=== PATIENT | female | born 1980 | race Caucasian/White ===

== ENCOUNTER 2020-08-16 16:18 | Emergency (ER) | payer OTHER ==
--- NOTE | 2020-08-16 21:46 | EDM.PDOC ---
ED HPI GENERAL MEDICAL PROBLEM - General Chief Complaint: Cardiovascular Problem Stated Complaint: POSSIBLE BLOOD CLOT Time Seen by Provider: 08/16/20 18:13 Source of Information: Reports: Patient History Limitations: Reports: No Limitations - History of Present Illness INITIAL COMMENTS - FREE TEXT/NARRATIVE: Catherine is a 40-year-old female presenting to the ED for evaluation of right lower extremity pain. Patient is concerned about blood clots because both she and her father had Covid in July and he developed a large blood clot in the lower extremity from the iliac crest down to his ankle. 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 She is unaware of why she has an increased risk of blood clots but was concerned prompting her to come in for evaluation. She denies any significant trauma although she does have some mild bruising on her lower extremities from bumping into things. She is currently on vacation. She denies any numbness or tingling. She does have a history of sciatica on the left but not the right. 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 Hematologic History: Reports: Anticoagulation Therapy - Past Surgical History Female Surgical History: Reports: D&C, Tubal Ligation Social & Family History - Tobacco Use Tobacco Use Status *Q: Never Tobacco User - Caffeine Use Caffeine Use: Reports: Coffee - Recreational Drug Use Recreational Drug Use: No ED ROS GENERAL - Review of Systems Review Of Systems: See Below Constitutional: Reports: No Symptoms HEENT: Reports: No Symptoms Respiratory: Reports: No Symptoms Cardiovascular: Reports: No Symptoms Endocrine: Reports: No Symptoms GI/Abdominal: Reports: No Symptoms : Reports: No Symptoms Musculoskeletal: Reports: Leg Pain (Right calf pain in the posterior calf) Skin: Reports: Bruising (Minor bruising on both lower extremities) Neurological: Reports: No Symptoms Psychiatric: Reports: No Symptoms Hematologic/Lymphatic: Reports: Other (History of previous blood clots) Immunologic: Reports: No Symptoms ED EXAM, GENERAL - Physical Exam Exam: See Below Exam Limited By: No Limitations General Appearance: Alert, No Apparent Distress Head: Atraumatic, Normocephalic Neck: Normal Inspection Respiratory/Chest: No Respiratory Distress, Lungs Clear, Normal Breath Sounds Cardiovascular: Normal Peripheral Pulses, Regular Rate, Rhythm Peripheral Pulses: 2+: Brachial (L), Brachial (R), Posterior Tibial (L), Pos terior Tibial (R) Extremities: No Pedal Edema, Leg Pain (Tenderness to palpation in the midline posterior right calf. There is no significant edema.). No: Kathrin's Sign, Limi binh Range of Motion, Increased Warmth, Redness Neurological: Alert, Oriented, Normal Cognition, No Motor/Sensory Deficits Psychiatric: Normal Affect, Normal Mood Skin Exam: Warm, Dry, Intact, Normal Color Lymphatic: No Adenopathy Course - Vital Signs Last Recorded V/S: Last Vital Signs Temp 36.6 C 08/16/20 17:41 Pulse 108 H 08/16/20 19:44 Resp 16 08/16/20 17:41 BP 125/82 08/16/20 19:44 Pulse Ox 97 08/16/20 19:44 - Orders/Labs/Meds Orders: Active Orders 24 hr Category Date Time Status VL Duplex Lwr Ext Veins Ltd Rt [US] Stat Exams 08/16/20 18:14 Taken Labs: Laboratory Tests 08/16/20 08/16/20 Range/Units 18:32 18:32 WBC 5.8 (4.5-11.0) K/uL RBC 3.91 (3.30-5.50) M/uL Hgb 11.1 L (12.0-15.0) g/dL Hct 34.3 L (36.0-48.0) % MCV 88 (80-98) fL MCH 28 (27-31) pg MCHC 32 (32-36) % Plt Count 251 (150-400) K/uL Neut % (Auto) 52.6 (36-66) % Lymph % (Auto) 35.6 (24-44) % Garza % (Auto) 10.3 H (2-6) % Eos % (Auto) 1.0 L (2-4) % Baso % (Auto) 0.5 (0-1) % D-Dimer, Quantitative 258.27 (0.0-500.0) ng/mL - Radiology Interpretation Free Text/Narrative:: Ultrasound of the right lower extremity venous duplex was performed demonstrating normal venous vasculature without evidence for acute clot. - Re-Assessments/Exams Free Text/Narrative Re-Assessment/Exam: 08/16/20 21:49 ultrasound was performed showing no evidence for acute deep venous thrombosis or superficial thrombophlebitis. Labs were obtained showing a normal CBC and D-dimer. Patient is currently anticoagulated with Eliquis for previous DVTs. She was concerned with the risk of recently having Covid that she may have had recurrence. She will try Tylenol for pain control and will follow up with her primary care provider in [place], [place]. Indications to return to the ED were discussed and she was discharged in satisfactory condition. Departure - Departure Time of Disposition: 21:44 Disposition: Home, Self-Care 01 Clinical Impression: Pain of right lower extremity Referrals: PCP,None [Primary Care Provider] - Forms: ED Department Discharge Care Plan Goals: Your work-up today did not demonstrate any evidence for an acute blood clot. Your ultrasound was unremarkable for superficial thrombophlebitis which would be a blood clot in the less deep vessels. This is likely either due to irritation of the nerve referred to as sciatica or a strain of the muscle. Both should respond to ample use of Tylenol for pain control. You may do activity as tolerated. Please return to the ED should you have any significant worsening in symptoms. Sepsis Event Note (ED) - Evaluation Sepsis Screening Result: No Definite Risk - Focused Exam Vital Signs: Vital Signs Temp Pulse Resp BP Pulse Ox 08/16/20 19:44 108 H 125/82 97 08/16/20 17:41 36.6 C 109 H 16 123/68 96 08/16/20 17:19 36.6 C 109 H 16 123/68 96 - Problem List & Annotations (1) Pain of right lower extremity SNOMED Code(s): 035889536 Code(s): M79.604 - PAIN IN RIGHT LEG Status: Acute Priority: Medium Current Visit: Yes - Problem List Review Problem List Initiated/Reviewed/Updated: Yes - My Orders Last 24 Hours: My Active Orders 08/16/20 18:14 VL Duplex Lwr Ext Veins Ltd Rt [US] Stat - Assessment/Plan Last 24 Hours: My Active Orders 08/16/20 18:14 VL Duplex Lwr Ext Veins Ltd Rt [US] Stat
--- NOTE | 2020-08-17 09:05 | US ---
VL Duplex Lwr Ext Veins Ltd Rt INDICATION: right lower extremity pain/swelling post Covid FINDINGS: Ultrasound examination of the lower extremity using Doppler and compressive technique demonstrates that the common femoral, femoral, and popliteal veins are patent, and negative for thrombus. The calf veins were segmentally visualized and are negative where seen. IMPRESSION: Negative for deep venous thrombosis.
== END 2020-08-16 22:06 | disposition home or self-care (01) ==
LOC: JP.ED 16:18
DX: M79.604 Pain in right leg (principal); Z86.718 Personal history of other venous thrombosis and embolism; Z79.01 Long term (current) use of anticoagulants; Z91.040 Latex allergy status; Z91.013 Allergy to seafood; Z88.2 Allergy status to sulfonamides
CPT/HCPCS: 36415; 85025; 85379; 93971-26; 93971-RT; 99282; 99284-25

== ENCOUNTER 2020-08-18 09:11 | Emergency (ER) | payer OTHER ==
--- NOTE | 2020-08-18 10:42 | EDM.PDOC ---
ED HPI GENERAL MEDICAL PROBLEM - General Chief Complaint: General Stated Complaint: SEIZURE Time Seen by Provider: 08/18/20 09:25 Source of Information: Reports: Patient, EMS History Limitations: Reports: No Limitations - History of Present Illness INITIAL COMMENTS - FREE TEXT/NARRATIVE: 40-year-old female brought in by EMS with acute anxiety. She was hyperventilating and shaking, her called the ambulance and told EMS that he would come in and get her when she was done. I think they have been through this before. She has significant PTSD and anxiety, was given clonazepam 2 days ago and lorazepam 4 days ago. She is unsure how to take her medications. On arrival she seemed pretty calm, talkative but not anxious, and shortly afterwards she developed a stuttering speech with significant anxiety and hyperventilation. Not complaining of pain, no nausea or vomiting. Onset: Unknown/Unsure Associated Symptoms: Reports: Other (Claims she has had insomnia and has not slept for at least 4 days) - Related Data Allergies Allergy/AdvReac Type Severity Reaction Status Date / Time Latex, Natural Rubber Allergy Rash Verified 08/18/20 09:30 shellfish derived Allergy Anaphylactic Verified 08/18/20 09:30 Shock Sulfa (Sulfonamide Allergy Anaphylactic Verified 08/18/20 09:30 Antibiotics) Shock Home Meds: Home Meds Apixaban [Eliquis] 5 mg PO BID 08/16/20 [History] Citalopram [Citalopram HBr] 20 mg PO DAILY 08/16/20 [History] ClonazePAM [KlonoPIN] 0.5 mg PO ASDIRECTED 08/16/20 [History] Past Medical History 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 Hematologic History: Reports: Anticoagulation Therapy - Past Surgical History Female Surgical History: Reports: D&C, Tubal Ligation Social & Family History - Tobacco Use Tobacco Use Status *Q: Never Tobacco User - Caffeine Use Caffeine Use: Reports: Coffee - Recreational Drug Use Recreational Drug Use: No ED ROS GENERAL - Review of Systems Review Of Systems: See Below Constitutional: Denies: Fever, Chills Respiratory: Denies: Shortness of Breath Cardiovascular: Reports: Palpitations. Denies: Chest Pain GI/Abdominal: Denies: Nausea, Vomiting Musculoskeletal: Reports: No Symptoms Skin: Reports: No Symptoms Psychiatric: Reports: Anxiety ED EXAM, GENERAL - Physical Exam Exam: See Below Exam Limited By: No Limitations General Appearance: Alert, Anxious Eye Exam: Bilateral Eye: Normal Inspection Head: Atraumatic Respiratory/Chest: No Respiratory Distress, Lungs Clear Cardiovascular: Regular Rate, Rhythm, Tachycardia GI/Abdominal: Non-Tender Extremities: Normal Inspection Neurological: Alert, Oriented Psychiatric: Anxious, Other (Periods of moderate hyperventilation) Skin Exam: Warm, Dry Course - Vital Signs Last Recorded V/S: Last Vital Signs Temp 97.9 F 08/18/20 09:28 Pulse 115 H 08/18/20 09:28 Resp 10 L 08/18/20 09:28 BP 114/76 08/18/20 09:28 Pulse Ox 96 08/18/20 09:28 - Orders/Labs/Meds Labs: Laboratory Tests 08/18/20 08/18/20 08/18/20 Range/Units 09:51 09:51 10:03 Sodium 142 (140-148) mmol/L Potassium 4.4 (3.6-5.2) mmol/L Chloride 104 (100-108) mmol/L Carbon Dioxide 25 (21-32) mmol/L Anion Gap 13.4 (5.0-14.0) mmol/L BUN 5 L (7-18) mg/dL Creatinine 0.7 (0.6-1.0) mg/dL Est Cr Clr Drug Dosing 89.26 mL/min Estimated GFR (MDRD) > 60 (>60) Glucose 72 L (74-106) mg/dL Calcium 8.7 (8.5-10.1) mg/dL Total Bilirubin 0.4 (0.2-1.0) mg/dL AST 16 (15-37) U/L ALT 63 (12-78) U/L Alkaline Phosphatase 65 (46-116) U/L Total Protein 6.5 (6.4-8.2) g/dL Albumin 3.4 (3.4-5.0) g/dL Globulin 3.1 (2.3-3.5) g/dL Albumin/Globulin Ratio 1.1 L (1.2-2.2) Urine Color Yellow (YELLOW) Urine Appearance Clear (CLEAR) Urine pH 5.5 (5.0-8.0) Ur Specific [place] 1.020 (1.008-1.030) Urine Protein Negative (NEGATIVE) mg/dL Urine Glucose (UA) Negative (NEGATIVE) mg/dL Urine Ketones 40 H (NEGATIVE) mg/dL Urine Occult Blood Negative (NEGATIVE) Urine Nitrite Negative (NEGATIVE) Urine Bilirubin Negative (NEGATIVE) Urine Urobilinogen 0.2 (0.2-1.0) EU/dL Ur Leukocyte Esterase Negative (NEGATIVE) Urine RBC 0-5 (0-5) Urine WBC 0-5 (0-5) Ur Epithelial Cells Rare Amorphous Sediment Not seen Urine Bacteria Not seen Urine Mucus Not seen Urine Opiates Screen Negative (NEGATIVE) Ur Oxycodone Screen Negative (NEGATIVE) Urine Methadone Screen Negative (NEGATIVE) Ur Propoxyphene Screen Negative (NEGATIVE) Ur Barbiturates Screen Negative (NEGATIVE) Ur Tricyclics Screen Negative (NEGATIVE) Ur Phencyclidine Scrn Negative (NEGATIVE) Ur Amphetamine Screen Negative (NEGATIVE) U Methamphetamines Scrn Negative (NEGATIVE) Urine MDMA Screen Negative (NEGATIVE) U Benzodiazepines Scrn Presumptive positive H (NEGATIVE) U Cocaine Metab Screen Negative (NEGATIVE) U Marijuana (THC) Screen Negative (NEGATIVE) - Re-Assessments/Exams Free Text/Narrative Re-Assessment/Exam: 08/18/20 10:46 During her panic episode she is redirected fairly easily. CBC was just checked 2 days ago, CMP was drawn today to check electrolytes. These were fine. When I went in to talk to the patient about her labs, she was sleeping soundly. When she wakes will call her family to come get her. Departure - Departure Time of Disposition: 11:17 Disposition: Home, Self-Care 01 Clinical Impression: Acute hyperventilation syndrome, Anxiety - Discharge Information Instructions: Hyperventilation Referrals: PCP,None [Primary Care Provider] - Forms: ED Department Discharge Care Plan Goals: Take antianxiety medications up to every 3-4 hours if needed. Recheck with your primary provider when you get home. Sepsis Event Note (ED) - Evaluation Sepsis Screening Result: No Definite Risk - Focused Exam Vital Signs: Vital Signs Temp Pulse Resp BP Pulse Ox 08/18/20 09:28 97.9 F 115 H 10 L 114/76 96 08/18/20 09:20 97.9 F 115 H 10 L 114/76 96
== END 2020-08-18 12:25 | disposition home or self-care (01) ==
LOC: JP.ED 09:11
DX: F41.9 Anxiety disorder, unspecified (principal); F45.8 Other somatoform disorders; E66.9 Obesity, unspecified; Z86.718 Personal history of other venous thrombosis and embolism; Z79.01 Long term (current) use of anticoagulants; Z68.30 Body mass index [BMI] 30.0-30.9, adult; Z91.040 Latex allergy status; Z91.030 Bee allergy status; Z88.2 Allergy status to sulfonamides
CPT/HCPCS: 36415; 80053; 80305-QW; 81001; 99284